=== PATIENT | female | born 1940 | race Caucasian/White ===

== ENCOUNTER → 2016-10-20 | Outpatient (CLI) | payer OTHER, MEDICARE ==
--- NOTE | 2016-10-20 16:37 | MA ---
Screening Digital Mammogram Clinical Indications: Routine screening. Technique: Standard cephalocaudal and mediolateral oblique projections are obtained. This examinati on is processed by the [employer] computer aided detection system. Comparison: August 2015, August 2014, August 2013 and August 2012 Breast density: B; There are scattered fibroglandular densities. Findings: CAD was reviewed. There is subtle new architectural distortion and increasing density in th e outer left breast seen only on the cc view. The remainder of the left and right breast are stable.. Impression: Subtle developing density outer left breast. BI-RADS 0: additional imaging required outer left breast Recommendation: Spot compression view in the CC projection. If persistent, proceed to ultrasound for further characterization and localization purposes.. [facility] will send a result letter to the patient. Negative mammography should not preclude additional workup of a clinically suspicious finding. The patient's information is entered into a reminder system with a target due date for her next mammo gram.
== END ==
LOC: BMCIMAGING 14:31
DX: Z12.31 Encounter for screening mammogram for malignant neoplasm of breast (principal)
CPT/HCPCS: G0202

== ENCOUNTER → 2016-11-07 | Outpatient (CLI) | payer OTHER, MEDICARE ==
--- NOTE | 2016-11-07 13:48 | MA ---
Left diagnostic mammogram Indication: Subtle new distortion and increasing density outer left breast on the CC view. Technique: Spot compressed CC and true lateral views of the left breast. Comparison: Screening mammograms dating back to August 2010 Findings: The distortion completely resolves on the additional views. A benign band of asymmetric tis whit in the outer left breast has a similar appearance to the 2010 and 2009 mammograms. No underlying mass or architectural distortion. A benign lymph node in the deep upper-outer left breast is unchange d. Impression: Benign dense superimposed fibroglandular tissue in the upper-outer left breast. No malign waleska. BI-RADS 2: Benign finding. Recommendation: Resume routine annual screening in October 2017, unless otherwise clinically indicate d. Patient was notified of the negative results and recommendations at time of study completion.
== END ==
LOC: BMCIMAGING 12:32
DX: R92.8 Other abnormal and inconclusive findings on diagnostic imaging of breast (principal); M05.89 Other rheumatoid arthritis with rheumatoid factor of multiple sites; Z51.81 Encounter for therapeutic drug level monitoring
CPT/HCPCS: G0206

== ENCOUNTER → 2017-06-08 | Outpatient (CLI) | payer OTHER, MEDICARE | LOC: BMCIMAGING 11:05 | PROVIDERS: ATTEND Internal Medicine | DX: J44.9 Chronic obstructive pulmonary disease, unspecified (principal); R93.8 Abnormal findings on diagnostic imaging of other specified body structures ==

== ENCOUNTER → 2017-06-11 | Outpatient (CLI) | payer OTHER, MEDICARE | LOC: CIMAGING 13:33 | PROVIDERS: ATTEND Internal Medicine | DX: R91.8 Other nonspecific abnormal finding of lung field (principal); K86.9 Disease of pancreas, unspecified; I71.2 Thoracic aortic aneurysm, without rupture; K57.92 Diverticulitis of intestine, part unspecified, without perforation or abscess without bleeding | CPT/HCPCS: 71250-PO ==

== ENCOUNTER → 2017-06-13 | Outpatient (CLI) | payer OTHER, MEDICARE ==
[~2017-06-13] MED LIST: GADOBUTROL 10 ML VIAL IVP ONE
== END ==
LOC: FIMAGING 08:51
PROVIDERS: ATTEND Internal Medicine
DX: K86.2 Cyst of pancreas (principal)
CPT/HCPCS: 74183; A9585

== ENCOUNTER 2017-06-15 08:05 | Day surgery (SDC) | payer OTHER, MEDICARE ==
[2017-06-15] MEDS ORDERED: LR 1,000 ML IV ONE (08:47)
[2017-06-15] MEDS ORDERED: LIDOCAINE 1% 2 ML INJ ID PRN (08:47)
--- NOTE | 2017-06-15 09:46 | PDANEPAE ---
ANE History of Present Illness 76 yo F w pancreatic mass here for EGD/EUS ANE Past Medical History - Cardiovascular History Hx Hypertension: No Hx Arrhythmias: No Hx Chest Pain: No Hx Coronary Artery / Peripheral Vascular Disease: No Hx CHF / Valvular Disease: No Hx Palpitations: No Cardiovascular History Comment: BULGE IN [place]ORT[place] ON CT 06-11-17 - FU IN 6 MOS - Pulmonary History Hx COPD: Yes Hx Asthma/Reactive Airway Disease: No Hx Recent Upper Respiratory Infection: No Hx Oxygen in Use at Home: No Hx Sleep Apnea: No Sleep Apnea Screening Result - Last Documented: Negative Pulmonary History Comment: DX COPD 5 YRS AGO- WELL MANAGED W/COMBIVENT. PINPOINT SPOTS IN LUNGS PER CT SCAN 06-11-17 - Neurologic History Hx Cerebrovascular Accident: No Hx Seizures: No Hx Dementia: No - Endocrine History Hx Diabetes: No Endocrine History Comment: PANCREAS NODULE ON CT 06-11-17 - Renal History Hx Renal Disorders: Yes Renal History Comment: FREQUENCY - Liver History Hx Hepatic Disorders: No - Neurological & Psychiatric Hx Hx Neurological and Psychiatric Disorders: No - Cancer History Hx Cancer: No - Congenital Disorder History Hx Congenital Disorders: No - GI History Hx Gastrointestinal Disorders: No - Other Health History Other Health History: ORAL LESION. RA ON PREDNISONE AND METHOTREXATE - Chronic Pain History Chronic Pain: No - Surgical History Prior Surgeries: HYSTERECTOMY. LAP JESSE. TORRES'S NEUROMA. BREAST BX ANE Review of Systems Review of Systems: - Exercise capacity METS (RN): 4 METS ANE Patient History - Allergies Allergies/Adverse Reactions: bacitracin [From Neosporin ([id number]-[id number])] Allergy (Verified 06/12/17 15:17) bacitracin zinc [From Neosporin (gjt-wzu-kjezw)] Allergy (Verified 06/12/17 15: 17) neomycin sulfate [From Neosporin (hhp-uvi-qgaiu)] Allergy (Verified 06/12/17 15: 17) Other-Enter Comments NSAIDS (Non-Steroidal Anti-Inflamma Allergy (Verified 06/12/17 15:17) Anaphylaxis polymyxin B [From Neosporin ([id number]-qti-hcrwo)] Allergy (Verified 06/12/17 15:17) - Home Medications Home Medications: Combivent Respimat Inhal [place](*) 06/12/17 [Last Taken 06/15/17 08:55] Methotrexate 06/12/17 [Last Taken 06/09/17] Prednisone 06/12/17 [Last Taken 06/13/17] Z-Sleep 06/12/17 [Last Taken 06/13/17] - NPO status NPO Since - Liquids (Date): 06/14/17 NPO Since - Liquids (Time): 23:00 NPO Since - Solids (Date): 06/14/17 NPO Since - Solids (Time): 19:30 - Anes Hx Anes Hx: no prior problems - Smoking Hx Smoking Status: Heavy smoker (60 pack years) - Alcohol Use Alcohol Use: None - Family Anes Hx Family Anes Hx: none ANE Labs/Vital Signs - Vital Signs Blood Pressure: 170/90 Heart Rate: 78 Respiratory Rate: 20 O2 Sat (%): 96 Height: 172.72 cm Weight: 70.76 kg ANE Physical Exam - Airway Neck exam: FROM Mallampati Score: Class 2 Mouth exam: poor dentition, dentures Mouth image: 1 - missing 2 - missing - Pulmonary Pulmonary: no respiratory distress, expiratory wheeze - Cardiovascular Cardiovascular: regular rate and rhythym - ASA Status ASA Status: III ANE Anesthesia Plan Anesthesia Plan: general endotracheal anesthesia (backup), GA with mask
[2017-06-15] MEDS ORDERED: PROPOFOL/EMULSION 500 MG/50 ML BOTTLE IV ONE (09:57)
[2017-06-15] MEDS ORDERED: levOFLOXACIN 500 MG/DEXTROSE/100 ML BAG IV ONE (10:04)
--- NOTE | 2017-06-15 10:06 | PDGENHP ---
History & Physical Chief Complaint: pancreatic cyst History of Present Illness: 76 year old female presents for evaluation of a pancreatic cyst Pertinent Past, Social, Family History: PMHx: COPD, RA. FaMHx: No pancreatic cancer Relevant Physical Exam: HEENT: Anicteric. CV: RRR +s1s2. Lungs: CTAB No w/r/ r. Abd: soft, nt, + BS Cardiorespiratory Assessment: ASA 3
[2017-06-15] MEDS ORDERED: NS 500 ML IV SCH (10:15)
[2017-06-15] MEDS ORDERED: ACETAMINOPHEN 500 MG TAB PO PRN (10:21)
[2017-06-15] MEDS ORDERED: ONDANSETRON 4 MG/2 ML VIAL IVP PRN (10:21)
[2017-06-15] MEDS ORDERED: NALOXONE HCL 0.4 MG/ML INJ IVP PRN (10:21)
[2017-06-15] MEDS ORDERED: PROPOFOL 200 MG/20 ML VIAL ONE (10:36)
[2017-06-15 10:57] VITALS: PULSE 73
[2017-06-15 11:00] VITALS: TEMP 97.7
--- NOTE | 2017-06-15 11:03 | GIREPORT ---
Formerly [facility] Surgical Services - Endoscopy Department Patient Name: Vashti Angela Procedure Date: 06/15/2017 9:55 AM Patient Type: Outpatient Attending / ER Physician: Logan Maguire MD Procedure: Upper EUS Indications: Pancreatic cyst on MRI Patient Profile: 76 year old female presents for evaluation of pancreatic cyst. Providers: Logan Maguire MD Medicines: Monitored Anesthesia Care Complications: No immediate complications. Estimated blood loss: Minimal. Findings: Endoscopic Finding : The Z-line was irregular and was found at the gastroesophageal junction. Patchy mildly erythematous mucosa was found in the gastric body and in the gastric antrum. Biopsies were taken with a cold forceps for histology. A few diminutive sessile polyps were found on the greater curvature of the stomach. A single large sessile polyp was found in the second portion of the duodenum. The polyp was 2.5cm x 4.0cm. Biopsies were taken with a cold forceps for histology. Endosonographic Finding : An anechoic lesion suggestive of a cyst was identified in the pancreatic head. It does not communicate with the pancreatic duct. The lesion measured 25 mm by 40 mm in maximal cross-sectional diameter. There was a single compartment thinly septated. The outer wall of the lesion was thin. There was internal debris within the fluid-filled cavity. Fine needle aspiration for cytology was performed. Color Doppler imaging was utilized prior to needle puncture to confirm a lack of significant vascular structures within the needle path. One pass was made with the 25 gauge needle using a transduodenal approach. Approc A stylet was used. A gear tooth lapping machine operator was present and performed a preliminary cytologic examination. Final cytology results are pending. Pancreatic parenchymal abnormalities were noted in the entire pancreas. These consisted of hyperechoic foci. A few dilated side branches were noted. The pancreatic duct wall was not hyperechoic. There was no sign of significant endosonographic abnormality in the entire main bile duct. The maximum diameter of the duct was 4 mm. No cysts and no stones were identified. No lymphadenopathy seen. Estimated Blood Loss: Estimated blood loss was minimal. Post Op Diagnosis: - Z-line irregular, at the gastroesophageal junction. - Erythematous mucosa in the gastric body and antrum. Biopsied. - A few gastric polyps. - A single duodenal polyp. Biopsied and NOT removed. Will need endoscopic mucosal resection dependent on biopsy results. - A cystic lesion was seen in the pancreatic head. Fine needle aspiration performed. - Pancreatic parenchymal abnormalities consisting of hyperechoic foci were noted in the entire pancreas. - There was no sign of significant pathology in the entire main bile duct. Recommendation: - Discharge patient to home (with escort). - Await cytology results and await path results. - Perform an upper GI endoscopy in 6 weeks. - Await pathology results. - Clear liquid diet. - Ciprofloxacin 500 mg PO BID x 5 days. - Thamaddy you for allowing me to participate in the care Attending Participation: I personally performed the entire procedure. Logan Maguire MD Logan Maguire MD 06/15/2017 11:02:52 AM Number of Addenda: 0 Note Initiated On: 06/15/2017 9:55 AM Total Procedure Duration Time 0 hours 32 minutes 11 seconds [id number]}
--- NOTE | 2017-06-15 11:04 | POSTOPPROG ---
Post Op Note Date of Operation: 06/15/17 Surgeon: Logan Maguire Pre-op Diagnosis: pancreatic cyst Post-op Diagnosis: pancreatic cyst, gastritis, duodenal cyst. Indication: pancreatic cyst Procedure: EGD with bx, EUS with FNA Findings: + cyst + polyp Inf/Abcess present in the surg proc area at time of surgery?: No EBL: Minimal
[2017-06-15 11:13] VITALS: RESP 19
[2017-06-15 12:33] VITALS: BP 150/76; O2SAT 97
--- NOTE | 2017-06-15 16:47 | POSTANESTH ---
Post Anesthetic Evaluation Cardiovascular Status: Normal, Stable, Similar to Pre-Op Cond Respiratory Status: Normal, Stable, Similar to Pre-op Cond. Level of Consciousness/Mental Status: Can Participate in Eval, Alert and Oriented Pain Control: Adequate, Prn Tx Ordered Nausea/Vomiting Control: Adequate, Prn Tx Ordered Complications Possibly Related to Anesthesia: None Noted
[2017-06-18 10:54] LABS: AMYLASE RESULT 86 U/L
== END 2017-06-15 11:57 | disposition home or self-care (01) ==
LOC: FSGY 08:05
PROVIDERS: ATTEND Internal Medicine Gastroenterology
PROC: 0DB68ZX Excision of Stomach, Via Natural or Artificial Opening Endoscopic, Diagnostic (ICD-10-PCS; principal; 2017-06-15 10:00)
PROC: 0DB38ZX Excision of Lower Esophagus, Via Natural or Artificial Opening Endoscopic, Diagnostic (ICD-10-PCS; principal; 2017-06-15 10:00)
PROC: 0F9G4ZX Drainage of Pancreas, Percutaneous Endoscopic Approach, Diagnostic (ICD-10-PCS; principal; 2017-06-15 10:00)
PROC: 0DB98ZX Excision of Duodenum, Via Natural or Artificial Opening Endoscopic, Diagnostic (ICD-10-PCS; principal; 2017-06-15 10:00)
DX: K86.2 Cyst of pancreas (principal); K86.9 Disease of pancreas, unspecified; K31.7 Polyp of stomach and duodenum; K22.8 Other specified diseases of esophagus; K29.70 Gastritis, unspecified, without bleeding; R93.5 Abnormal findings on diagnostic imaging of other abdominal regions, including retroperitoneum; J44.9 Chronic obstructive pulmonary disease, unspecified; M06.9 Rheumatoid arthritis, unspecified; F17.210 Nicotine dependence, cigarettes, uncomplicated
CPT/HCPCS: J1956; J2704

== ENCOUNTER → 2017-10-24 | Outpatient (CLI) | payer OTHER, MEDICARE | LOC: BMCIMAGING 12:41 | PROVIDERS: ATTEND Internal Medicine | DX: Z12.31 Encounter for screening mammogram for malignant neoplasm of breast (principal) ==

== ENCOUNTER 2017-12-11 09:31 | Observation (INO) | payer OTHER, MEDICARE ==
[2017-12-11] MEDS ORDERED: LR 1,000 ML IV ONE (09:50)
[2017-12-11] MEDS ORDERED: LIDOCAINE 1% 2 ML INJ ID PRN (09:50)
--- NOTE | 2017-12-11 10:42 | PDANEPAE ---
ANE History of Present Illness EGD ANE Past Medical History - Cardiovascular History Hx Hypertension: No Hx Arrhythmias: No Hx Chest Pain: No Hx Coronary Artery / Peripheral Vascular Disease: No Hx CHF / Valvular Disease: No Hx Palpitations: No Cardiovascular History Comment: BULGE IN [place]ORT[place] ON CT 06-11-17 - FU IN 6 MOS - Pulmonary History Hx COPD: Yes Hx Asthma/Reactive Airway Disease: No Hx Recent Upper Respiratory Infection: No Hx Oxygen in Use at Home: No Hx Sleep Apnea: No Pulmonary History Comment: DX COPD 5 YRS AGO- WELL MANAGED W/COMBIVENT. PINPOINT SPOTS IN LUNGS PER CT SCAN 06-11-17 - Neurologic History Hx Cerebrovascular Accident: No Hx Seizures: No Hx Dementia: No - Endocrine History Hx Diabetes: No Endocrine History Comment: PANCREAS NODULE ON CT 06-11-17 - Renal History Hx Renal Disorders: Yes Renal History Comment: FREQUENCY - Liver History Hx Hepatic Disorders: No - Neurological & Psychiatric Hx Hx Neurological and Psychiatric Disorders: No - Cancer History Hx Cancer: No - Congenital Disorder History Hx Congenital Disorders: No - GI History Hx Gastrointestinal Disorders: Yes Gastrointestinal History Comment: small bowel polp - Other Health History Other Health History: ORAL LESION. RA ON PREDNISONE AND METHOTREXATE - Chronic Pain History Chronic Pain: No - Surgical History Prior Surgeries: HYSTERECTOMY. LAP JESSE. TORRES'S NEUROMA. BREAST BX. polp on small bowel removing in parts ANE Review of Systems Review of systems is: negative Review of Systems: - Exercise capacity METS (RN): 4 METS ANE Patient History - Allergies Allergies/Adverse Reactions: bacitracin [From Neosporin ([id number]-lve-ndmyo)] Allergy (Verified 06/12/17 15:17) bacitracin zinc [From Neosporin ([id number]-ebd-zwkxj)] Allergy (Verified 06/12/17 15: 17) neomycin sulfate [From Neosporin (krf-wkd-chjlj)] Allergy (Verified 06/12/17 15: 17) Other-Enter Comments NSAIDS (Non-Steroidal Anti-Inflamma Allergy (Verified 06/12/17 15:17) Anaphylaxis polymyxin B [From Neosporin ([id number]-ysl-blgxn)] Allergy (Verified 06/12/17 15:17) - Home Medications Home medications: home medication list seen and reviewed Home Medications: Combivent Respimat Inhal [place](*) 06/12/17 [Last Taken 12/11/17 08:30] Methotrexate 06/12/17 [Last Taken 12/08/17] Prednisone 06/12/17 [Last Taken 12/10/17] Z-Sleep 06/12/17 [Last Taken 12/10/17] - NPO status NPO Since - Liquids (Date): 12/11/17 NPO Since - Liquids (Time): 09:00 NPO Since - Solids (Date): 12/10/17 NPO Since - Solids (Time): 19:00 - Anes Hx Anes Hx: post operative nausea and vomiting - Smoking Hx Smoking Status: Heavy smoker - Family Anes Hx Family Anes Hx: none ANE Labs/Vital Signs - Labs Result Diagrams: 12/11/17 10:43 12/11/17 10:43 - Vital Signs Height: 172.72 cm Weight: 70.307 kg ANE Physical Exam - Airway Neck exam: FROM Mallampati Score: Class 2 Mouth exam: dentures - Pulmonary Pulmonary: no respiratory distress - Cardiovascular Cardiovascular: regular rate and rhythym - ASA Status ASA Status: III ANE Anesthesia Plan Total IV Anesthesia: Yes
--- NOTE | 2017-12-11 10:50 | PDGENHP ---
History & Physical Chief Complaint: CC: Hematochezia History of Present Illness: 77 year old women with recent EGD with endoscopic removal of duodenal polyp. Patient with hematochezia and light headedness. Patient was instructed to go to ER for evaluation. Patient was sent to Endo directly. Patient was hemodynamically stable in Endo. Patient presents now for EGD and flex sig to evaluate bleeding. Pertinent Past, Social, Family History: HTN Relevant Physical Exam: Lungs Clear Cardiac Normal
--- NOTE | 2017-12-11 10:51 | POSTANESTH ---
Post Anesthetic Evaluation Cardiovascular Status: Normal, Stable, Similar to Pre-Op Cond Respiratory Status: Similar to Pre-op Cond. Level of Consciousness/Mental Status: Can Participate in Eval Pain Control: Adequate, Prn Tx Ordered Nausea/Vomiting Control: Adequate, Prn Tx Ordered Complications Possibly Related to Anesthesia: None Noted
[2017-12-11 10:53] LABS: PLATELET COUNT 183 10^3/uL (150-400)
[2017-12-11] MEDS ORDERED: PROPOFOL/EMULSION 500 MG/50 ML BOTTLE IV ONE (11:16)
[2017-12-11] MEDS ORDERED: LIDOCAINE 2% 100 MG/5 ML SYR ONE (11:16)
--- NOTE | 2017-12-11 11:36 | GIREPORT ---
[facility] Surgical Services - Endoscopy Department Patient Name: Vashti Angela Procedure Date: 12/11/2017 11:09 AM Patient Type: Outpatient Attending MD/ ER Physician: Jose Sosa MD Procedure: Upper GI endoscopy Indications: Acute post hemorrhagic anemia, Hematochezia, Recent EGD with duodenal polypectomy. Providers: Jose Sosa MD Medicines: Sedation Required Anesthesia Staff Assistance Complications: No immediate complications. Description of Procedure: After obtaining informed consent, the endoscope was passed under direct vision. Throughout the procedure, the patient's blood pressure, pulse, and oxygen saturations were monitored continuously. The Endoscope was intro duced through the mouth, and advanced to the second part of duodenum. The [facility] GI endoscopy was accomplished without difficulty. The patient tolerated th e procedure well. Findings: The examined esophagus was normal. A small hiatal hernia was present. The entire examined stomach was normal. No bleed see in the stomach. One non-obstructing non-bleeding cratered duodenal ulcer with pigmented material was found in the second portion of the duodenum. The lesion wa s 20 mm in largest dimension. Estimated Blood Loss: Estimated blood loss: none. Post Op Diagnosis: - Normal esophagus. - Normal stomach. - One non-obstructing non-bleeding duodenal ulcer with pigmented materi al. Stigmata of recent bleeding. - No specimens collected. Recommendation: - Recommend admission to the hosptial for observation in setting of acu te GIB. - Serial H and H - Use Protonix (pantoprazole) 40 mg IV BID. - Clear liquid diet. - Type and Screen - Thank you for allowing me to participate in the care of your patient. Attending Participation: I personally performed the entire procedure. Jose Sosa MD Jose Sosa MD 12/11/2017 11:35:33 AM This report has been signed electronicallyStgoran Sosa MD Number of Addenda: 0 Note Initiated On: 12/11/2017 11:09 AM [email or web address]}
--- NOTE | 2017-12-11 11:39 | GIREPORT ---
Formerly [facility] Surgical Services - Endoscopy Department Patient Name: Vashti Angela Procedure Date: 12/11/2017 11:23 AM Patient Type: Outpatient Attending / ER Physician: Jose Sosa MD Procedure: Flexible Sigmoidoscopy Indications: Hematochezia, Melena Providers: Jose Sosa MD Medicines: Sedation Required Anesthesia Staff Assistance Complications: No immediate complications. Description of Procedure: After obtaining informed consent, the endoscope was passed under direct vision. Throughout the procedure, the patient's blood pressure, pulse, and oxygen saturations were monitored continuously. The Colonoscope was introduced through the anus and advanced to the rectum. The flexible sigmoidoscopy was accomplished without difficulty. The patient tolerate d the procedure well. The quality of the bowel preparation was adequate. Findings: Internal hemorrhoids were found during retroflexion. The hemorrhoids we re medium-sized. Red maroon blood was found in the rectum. Estimated Blood Loss: Estimated blood loss: none. Post Op Diagnosis: - Internal hemorrhoids. - Blood in the rectum. - No specimens collected. Recommendation: - Patient being admitted for observation and managment of an UGI bleed. - Thank you for allowing me to participate in the care of your patient. Attending Participation: I personally performed the entire procedure. Jose Sosa MD Jose Sosa MD 12/11/2017 11:38:58 AM This report has been signed electronicallyStgoran Sosa MD Number of Addenda: 0 Note Initiated On: 12/11/2017 11:23 AM Total Procedure Duration Time 0 hours 0 minutes 53 seconds [email or web address]
[2017-12-11] MEDS ORDERED: HYDROCODONE/APAP 5/325 TAB PO PRN (11:41)
[2017-12-11] MEDS ORDERED: ALBUTEROL 3 ML DEYVIAL IH PRN (11:41)
[2017-12-11] MEDS ORDERED: OXYCODONE/APAP 5/325 TAB PO PRN (11:41)
[2017-12-11] MEDS ORDERED: ACETAMINOPHEN 500 MG TAB PO PRN (11:41)
[2017-12-11] MEDS ORDERED: fentaNYL 100 MCG/2 ML INJ IVP PRN (11:41)
[2017-12-11] MEDS ORDERED: DEXAMETHASONE 4 MG/ML VIAL IVP PRN (11:41)
[2017-12-11] MEDS ORDERED: ONDANSETRON 4 MG/2 ML VIAL IVP PRN ×2 (11:41→12:32)
[2017-12-11] MEDS ORDERED: NALOXONE HCL 0.4 MG/ML INJ IVP PRN (11:41)
[2017-12-11] MEDS ORDERED: ACETAMINOPHEN 325 MG TAB PO PRN (12:32)
[2017-12-11] MEDS ORDERED: PROMETHAZINE HCL 25 MG/ML INJ IVP PRN (12:32)
--- NOTE | 2017-12-11 12:50 | GHP ---
[f rep st] HISTORY AND PHYSICAL DATE OF ADMISSION: 12/11/2017 CHIEF COMPLAINT: Blood in stool. HISTORY OF PRESENT ILLNESS: This is a 77-year-old female, who underwent an EGD with endoscopic remov al of a duodenal polyp last week. Presented to the hospital today after she had an episode of hemato chezia and the feeling of lightheadedness this morning. Last night the patient had some chili, which she felt did not agree with her. She vomited multiple t imes last night. Her vomitus was described as nonbloody and did not have any appearance of coffee-gr ound emesis. This morning, she developed some bright red blood per rectum and felt lightheaded. Melissa arently she was sent directly to the endoscopy suite, where she underwent an EGD and flex sig by Dr. Sosa. The flex sig revealed red maroon stool in the rectum as well as internal hemorrhoids. The EGD showed 1 nonobstructing, nonbleeding duodenal ulcer with pigmented material and stigmata of recen t bleeding. During the time of my exam, the patient was seen in the postoperative area. She is deny ing any abdominal pain. She is no longer feeling nauseous. PAST MEDICAL HISTORY: 1. Tobacco abuse. 2. Chronic obstructive pulmonary disease. PAST SURGICAL HISTORY: Cholecystectomy. HOME MEDICATIONS: Refer to Daily Dealy for details. ALLERGIES: Bacitracin, NSAIDs, neomycin, polymyxin. SOCIAL HISTORY: The patient smokes. She denies any current alcohol use. She denies any illicit carmelina g use. FAMILY HISTORY: Significant for mother with multiple intestinal surgeries, possible colon cancer. REVIEW OF SYSTEMS: Comprehensive 10-point review of systems was done and is negative, except for as mentioned in the HPI. PHYSICAL EXAMINATION: VITAL SIGNS: Blood pressure 133/65, pulse of 74, respiratory rate 21, O2 sat 100% on 2 L, temperature afebrile. GENERAL: No acute distress. HEAD: Normocephalic, atraumatic. EYES: PERRLA. Sclerae anicteric. MOUTH: Moist mucous membranes. NECK: Supple. No lymphadenopat hy. CARDIOVASCULAR: S1-S2. No JVD. No lower extremity edema. PULMONARY: Lungs are clear to ausc ultation bilaterally. No wheezes, rales, or rhonchi. ABDOMEN: Soft, nontender, nondistended. No g uarding or rebound tenderness. Normoactive bowel sounds. EXTREMITIES: No clubbing or cyanosis. NE URO: Cranial nerves 2-12 grossly intact. No focal motor or sensory deficits. SKIN: Without rash. DIAGNOSTICS: WBC is 11.1, hemoglobin 12.8, hematocrit 37.6, down from a crit of 49.3 on 11/27/2017. Sodium 144, potassium 4, chloride 107, BUN 27, creatinine 0.5, glucose 82. ASSESSMENT: This is a 77-year-old female who underwent esophagogastroduodenoscopy and endoscopic rem oval of a duodenal polyp last week, presenting with suspected acute gastrointestinal bleed with acute blood loss anemia. PLAN: Once again, the patient has already undergone EGD and sigmoidoscopy. At this point, she will be observed and closely monitored for further bleeding. We will start Protonix 40 mg IV b.i.d. and c heck a type and cross. We will also obtain baseline coags. If she continues to be hemodynamically s table and not bleeding, she can likely be discharged in the morning. Chemical DVT prophylaxis is contraindicated in the setting of bleeding. We will order SCDs. /[id number]/MODL
--- NOTE | 2017-12-11 13:51 | GCON ---
[f rep st] CONSULTATION DATE OF CONSULTATION: 12/11/2017 CHIEF COMPLAINT: Hematochezia, lightheadedness. HISTORY OF PRESENT ILLNESS: This 77-year-old woman had been directed to the emergency department. S he was sent up to endoscopy directly. She had undergone an upper endoscopy last week with Dr. Maguire. She had a large duodenal polyp that was adenomatous. She had this snare excised with mucosal resect ion. Last evening, she felt unwell, she had some nausea and vomiting. She did not vomit any hematem esis. She denies any bright red blood or coffee-ground material. She felt unwell most of the night. In the morning, she had 2 episodes of bright red blood per rectum. She was feeling somewhat lighthe aded and dizzy. She was directed to go to the emergency department by our office. She presented up to endoscopy. She was not tachycardic in endoscopy, had normal blood pressure. Her hematocrit was s omewhat low at 37% with a mildly elevated BUN and normal creatinine suggesting upper GI bleed. It wa s recommended she go directly to the endoscopy unit. PAST MEDICAL HISTORY: Remarkable for tobacco abuse, COPD. PAST SURGICAL HISTORY: Remarkable cholecystectomy. ALLERGIES: Bactrim, NSAIDs, neomycin, polymyxin. SOCIAL HISTORY: She is a nonsmoker. No significant alcohol or illicit drugs. FAMILY HISTORY: Possible colon cancer in her mother. Otherwise, negative per chief complaint. MEDICATIONS: Patient describes taking prednisone, methotrexate and inhaler as an outpatient. REVIEW OF SYSTEMS: Negative 10 systems other than mentioned HPI. PHYSICAL EXAM: VITAL SIGNS: 129/72, pulse of 75, respiratory rate 21, temperature 36.5 Celsius. GE NERAL: Very pleasant woman in no acute distress. HEENT: Normocephalic, atraumatic. EOMI. NECK: S upple. No cervical adenopathy. LUNGS: Clear. CARDIAC: Normal S1, S2 without murmur. ABDOMEN: So ft, benign nontender, no hepatosplenomegaly. EXTREMITIES: Without clubbing, cyanosis, edema. SKIN: Warm, dry, intact. NEURO: Nonfocal. PSYCH: Normal affect. Oriented to person, place, and time. LABORATORY DATA: White count 11.1, hemoglobin 12.8, hematocrit 37.6. Serum chemistries: Serum sodiu m 144, potassium 4.0, chloride 107, CO2 28, BUN 27, creatinine 0.9. IMPRESSION: A 77-year-old woman who has had a recent large polypectomy in the duodenum now presents with some symptoms of lightheadedness, dizziness and reported passage of blood per rectum. She descr ibed bright red blood per rectum. However, she does have a slight drop in her hematocrit with elevat ed BUN of 27, suggesting a possible upper GI bleed. Given recent polypectomy in the duodenum, would recommend urgent upper endoscopy. We will also proceed with flexible sigmoidoscopy at the time of up per endoscopy. RECOMMENDATIONS: 1. Proceed with urgent upper endoscopy and flexible sigmoidoscopy. 2. Anticipate admission to the hospital for observation. /[id number]/MODL
[2017-12-11 15:18] LABS: INR 1.08 (0.83-1.16); PROTIME(PATIENT) 14.2 SEC (12.0-15.0)
[2017-12-11] MEDS: PANTOPRAZOLE SODIUM 40 MG VIAL IVP SCH (20:00)
[2017-12-11] MEDS ORDERED: diphenhydrAMINE 25 MG CAP PO PRN (21:02)
[2017-12-12] MEDS: PANTOPRAZOLE SODIUM 40 MG VIAL IVP SCH (08:21)
--- NOTE | 2017-12-12 08:44 | SOAPPROG ---
SOAP Progress Note Assessment/Plan: Assessment: Patient has an episode of dark red stool yesterday. Was described as a small amount. Patient without abdominal pain, no light headiness or dizziness. She had a slight drop in Hct since admission. Plan: 1. Advance to regular diet 2. Pantoprazole 40 mg PO BID x 2 weeks then 40 mg a day x 6 weeks 3. Ok for discharge home later today. Will need follow up with Dr. Maguire. 4. I would recommend an outpatient colonoscopy at some point in the near future. 12/12/17 08:41 Subjective: CC: GI Bleed Patient without pain. Had one episode of dark red stool since admission. No abdominal pain, no light headedness. Objective: Vital Signs Temp Pulse Resp BP Pulse Ox 36.7 C 76 18 147/81 H 94 12/12/17 07:18 12/12/17 07:18 12/12/17 07:18 12/12/17 07:18 12/12/17 07:18 Laboratory Results 12/12/17 05:55 12/11/17 10:43 12/11/17 12/12/17 12/13/17 05:59 05:59 05:59 Intake Total 1000 Output Total 0 Balance 1000 PT 14.2 SEC (12.0-15.0) 12/11/17 14:15 INR 1.08 (0.83-1.16) 12/11/17 14:15 Generic Name Dose Route Start Last Admin Trade Name Freq PRN Reason Stop Dose Admin Acetaminophen 650 mg 12/11/17 12:32 Tylenol PO 06/09/18 12:31 Q6 PRN Pain, Mild/Fever, Can Take PO Albuterol/Ipratropium 1 inh 12/12/17 09:00 Combivent Respimat Inhal [place] IH 06/10/18 08:59 BID NOELLE Diphenhydramine HCl 25 mg 12/11/17 21:02 12/12/17 00:08 Benadryl PO 06/09/18 21:01 25 mg HS PRN Administration Sleep/Insomnia Ondansetron HCl 4 mg 12/11/17 12:32 Zofran IVP 06/09/18 12:31 Q4 PRN Nausea/Vomiting, Can't Take PO Pantoprazole Sodium 40 mg 12/11/17 21:00 12/12/17 08:21 Protonix IVP 06/09/18 20:59 40 mg BID NOELLE Administration Promethazine HCl 12.5 mg 12/11/17 12:32 Phenergan IVP 06/09/18 12:31 Q6 PRN Nausea/Vomiting, Can't Take PO Discontinued Medications Generic Name Dose Route Start Last Admin Trade Name Franchesca PRN Reason Stop Dose Admin Acetaminophen 500 mg 12/11/17 11:41 Tylenol PO 12/11/17 12:41 Q6HRS PRN PACU, Pain Mild Hydrocodone Bitart/Acetaminophen 1 - 2 tab 12/11/17 11:41 [place] 5/325 PO 12/11/17 12:41 Q4HRS PRN PACU, Pain Moderate Albuterol 3 ml 12/11/17 11:41 Proventil Neb IH 12/11/17 12:41 Q10M PRN PACU, Wheezing Dexamethasone 4 mg 12/11/17 11:41 Decadron Injection IVP 12/11/17 12:41 ONCE PRN PACU, Nausea/Vomiting Epinephrine HCl Confirm 12/11/17 10:42 Epinephrine Administered 12/11/17 10:43 Dose 1 mg .ROUTE .STK-MED ONE Fentanyl 25 - 100 mcg 12/11/17 11:41 Sublimaze IVP 12/11/17 12:41 Q5M PRN PACU, IMMEDIATE Pain control Lactated Ringer's 1,000 mls @ 0 mls/hr 12/11/17 09:50 12/11/17 10:48 Lr IV 12/11/17 09:51 1,000 mls ONCE ONE Administration KVO Lidocaine HCl 0.2 ml 12/11/17 09:50 12/11/17 10:48 Lidocaine Hcl 1% ID 12/11/17 11:51 0.2 ml ONCE PRN Administration IV Start Lidocaine HCl Confirm 12/11/17 11:16 Lidocaine Hcl 2% Administered 12/11/17 11:17 Dose 100 mg .ROUTE .STK-MED ONE Naloxone HCl 0.1 mg 12/11/17 11:41 Narcan IVP 12/11/17 12:41 Q2M PRN PACU Resp Rate <10/min Ondansetron HCl 2 - 4 mg 12/11/17 11:41 Zofran IVP 12/11/17 12:41 Q10M PRN PACU, Nausea/Vomiting Oxycodone/Acetaminophen 1 - 2 tab 12/11/17 11:41 Percocet 5/325 PO 12/11/17 12:41 Q4HRS PRN PACU, Pain Severe Propofol Confirm 12/11/17 11:16 Diprivan 10 Mg/Ml (Premix) Administered 12/11/17 11:17 Dose 500 mg IV .STK-MED ONE Physical Exam - Physical Exam General Appearance: alert, no apparent distress Respiratory: lungs clear, normal breath sounds Cardiac/Chest: regular rate, rhythm Abdomen: normal bowel sounds, non-tender, soft Skin: normal color, warm/dry Neuro/Psych: no motor/sensory deficits, alert, normal mood/affect, oriented x 3 ICD10 Worksheet Patient Problems: Problems Problem Status Onset Melena Acute - ICD10 Problem Qualifiers (1) Melena
--- NOTE | 2017-12-12 08:47 | HOSPPROG ---
Hospitalist Progress Note Assessment/Plan: patient is a 77 y/o admitted due to concerns of blood in her stool. Reviewed her care w Dr Sosa. *GI bleed -h/h overall stable, have trended down a bit -PPI bid x 2 weeks, then daily x 6 weeks -OP colonoscopy *nicotine dependence -cessation recommended, patch *COPD *plan; dc home, further f/u with Dr Maguire Subjective: Vashti is feeling well, no complaints. Objective: Vital Signs Temp Pulse Resp BP Pulse Ox 36.7 C 76 18 147/81 H 94 12/12/17 07:18 12/12/17 07:18 12/12/17 07:18 12/12/17 07:18 12/12/17 07:18 Laboratory Results 12/12/17 05:55 12/11/17 10:43 12/11/17 12/12/17 12/13/17 05:59 05:59 05:59 Intake Total 1000 Output Total 0 Balance 1000 PT 14.2 SEC (12.0-15.0) 12/11/17 14:15 INR 1.08 (0.83-1.16) 12/11/17 14:15 - Physical Exam Constitutional: no apparent distress, appears nourished, not in pain Eyes: PERRL Ears, Nose, Mouth, Throat: hearing normal Cardiovascular: regular rate and rhythym Respiratory: no respiratory distress Gastrointestinal: normoactive bowel sounds Skin: warm Musculoskeletal: full muscle strength Neurologic: AAOx3 Psychiatric: interacting appropriately ICD10 Worksheet Patient Problems: Problems Problem Status Onset Melena Acute
[2017-12-12] MEDS ORDERED: IPRATROPIUM/ALBUTEROL 4GM MDI IH SCH (09:00)
[2017-12-12] MEDS ORDERED: PANTOPRAZOLE SODIUM 40 MG TAB PO SCH (09:00)
--- NOTE | 2017-12-12 10:06 | ASMTCMCOM ---
CM Note CM Note Notes: Spoke w/RN, anticipate will dc home independent when medically stable. CM available for any changes. DC Plan: Independent Date Signed: 12/12/2017 10:06 AM Electronically Signed By:Riana Ozuna RN
--- NOTE | 2017-12-12 10:14 | GDS ---
[f rep st] DISCHARGE SUMMARY DISCHARGE DIAGNOSES: 1. Likely upper gastrointestinal bleed. 2. Anemia due to this. 3. Nicotine dependence. 4. Chronic obstructive pulmonary disease. HISTORY: Briefly, the patient is a 77-year-old female, who underwent EGD with endoscopic removal of a duodenal polyp last week. She presented to the hospital after she had an episode of hematochezia and the feeling of lightheadedness in the morning. She underwent an EGD and flex sig by Dr. Jarvis. The flex sig revealed maroon stool in the rectum, as well as internal hemorrhoids. The EGD showed a nonobstructing, nonbleeding duodenal ulcer. She was monitored overnight. Her hemoglobin and hematocrit trended down, but have been stable. The plan is for her to be on a PPI daily for 2 weeks, and then daily x6 weeks, and further follow up with Dr. Maguire in the outpatient setting. HOSPITAL COURSE BY PROBLEM: 1. Upper GI bleed. She will stay here through the morning to make sure she is feeling okay. Vital signs are stable. Hemoglobin and hematocrit have trended down, but are not worsen. Will recommend that she see her primary care provider and get a hemoglobin and hematocrit next week. She will be on a PPI b.i.d. x2 weeks, then daily x6 weeks. She needs an outpatient colonoscopy. I discussed this with her. 2. Nicotine dependence. Cessation recommended. She has a patch on. 3. COPD, not on oxygen. Overall stable. DISCHARGE CONDITION: Stable. Blood pressure is 147/81, heart rate is 76, respiratory rate is 18, O2 sats on room air 94%, temperature 36.7 Celsius. MEDICATIONS AT DISCHARGE: Please see the EMR. DISCHARGE INSTRUCTIONS: 1. Recommending she talk to Dr. Maguire in regard about restarting her prednisone and her methotrexate. 2. If she develops any further bleeding, to return to the ER. Copy requested to: Dr. Maguire /[id number]/MODL MTDD
[2017-12-12 11:52] VITALS: BP 144/63; PULSE 82; RESP 14; TEMP 98; O2SAT 100
== END 2017-12-12 11:54 | disposition home or self-care (01) ==
LOC: FSGY 09:31 → F3N 11:49 → F3E 13:23
PROVIDERS: ADMIT Family Medicine; ATTEND Hospitalist
DX: K92.1 Melena (principal); D62 Acute posthemorrhagic anemia; R42 Dizziness and giddiness; K64.8 Other hemorrhoids; K26.9 Duodenal ulcer, unspecified as acute or chronic, without hemorrhage or perforation; K44.9 Diaphragmatic hernia without obstruction or gangrene; F17.210 Nicotine dependence, cigarettes, uncomplicated; J44.9 Chronic obstructive pulmonary disease, unspecified; Z98.890 Other specified postprocedural states
CPT/HCPCS: 43235; 45330; G0378; G0379; J2001; J2704; J0171

== ENCOUNTER → 2017-12-26 | Outpatient (CLI) | payer OTHER, MEDICARE ==
[~2017-12-26] MED LIST changes: -GADOBUTROL 10 ML VIAL IVP ONE; +IOPAMIDOL (ISOVUE 370) 100 ML BTL IV ONE
== END ==
LOC: FIMAGING 11:32
PROVIDERS: ATTEND Internal Medicine
DX: R91.8 Other nonspecific abnormal finding of lung field (principal); I71.2 Thoracic aortic aneurysm, without rupture; J43.9 Emphysema, unspecified; D18.09 Hemangioma of other sites
CPT/HCPCS: 71275; Q9967

== ENCOUNTER → 2018-01-10 | Outpatient (CLI) | payer OTHER, MEDICARE ==
[~2018-01-10] MED LIST changes: -IOPAMIDOL (ISOVUE 370) 100 ML BTL IV ONE; +IOPAMIDOL (ISOVUE-300) 100 ML BTL ONE
== END ==
LOC: FIMAGING 10:12
PROVIDERS: ATTEND Internal Medicine Gastroenterology
DX: K86.2 Cyst of pancreas (principal); I71.4 Abdominal aortic aneurysm, without rupture
CPT/HCPCS: 74160; Q9967

== ENCOUNTER 2018-04-12 20:15 | Inpatient (IN) | payer OTHER, MEDICARE ==
[2018-04-12] MEDS ORDERED: NS 1,000 ML IV ONE ×2 (20:49)
--- NOTE | 2018-04-12 20:57 | EDPHY ---
H & P Stated Complaint: Diarrhea x4 days. Time Seen by Provider: 04/12/18 20:39 HPI/ROS: CHIEF COMPLAINT: Diarrhea HISTORY OF PRESENT ILLNESS: The patient is a 77-year-old immunocompromised female who comes to the emergency department complaining of diarrhea for 4 days. She has history of rheumatoid arthritis and is on methotrexate and prednisone. She has been on 3 different antibiotics in the last 2 months for a chronic wound on her right leg. She cannot remember the name of the 1st but then has been on Levaquin and then clindamycin. She finished 2 weeks ago. About 4 days ago she began having loose stools. Nonbloody. She does not describe them as watery. She states that any time she drinks water however it makes her have diarrhea. She is getting dehydrated. She has not had a fever. No vomiting. No abdominal pain. No distension. REVIEW OF SYSTEMS: Constitutional: denies: chills, fever, recent illness, recent injury EENTM: denies: blurred vision, double vision, nose congestion Respiratory: denies: cough, shortness of breath Cardiac: denies: chest pain, irregular heart rate, lightheadedness, palpitations Gastrointestinal/Abdominal: See HPI Genitourinary: denies: dysuria, frequency, hematuria, pain Musculoskeletal: denies: joint pain, muscle pain Skin: denies: lesions, rash, jaundice, bruising Neurological: denies: headache, numbness, paresthesia, tingling, dizziness, weakness Hematologic/Lymphatic: denies: blood clots, easy bleeding, easy bruising Immunologic/allergic: denies: HIV/AIDS, transplant EXAM: GENERAL: Moderate distress. HEAD: Atraumatic, normocephalic. EYES: Pupils equal round and reactive to light, extraocular movements intact, sclera anicteric, conjunctiva are normal. ENT: TMs normal, nares patent, oropharynx clear without exudates. Dry mucous membranes. NECK: Normal range of motion, supple without lymphadenopathy or JVD. LUNGS: Breath sounds clear to auscultation bilaterally and equal. No wheezes rales or rhonchi. HEART: Not tachycardic, Regular rate and rhythm without murmurs, rubs or gallops. ABDOMEN: Soft, nontender, normoactive bowel sounds. No guarding, no rebound. No masses appreciated. BACK: No CVA tenderness, no spinal tenderness, step-offs or deformities EXTREMITIES: Normal range of motion, no pitting or edema. No clubbing or cyanosis. NEUROLOGICAL: Cranial nerves II through XII grossly intact. Normal speech, normal gait. 5/5 strength, normal movement in all extremities, normal sensation PSYCH: Normal mood, normal affect. SKIN: Warm, dry, normal turgor, no visible rashes or lesions. Source: Patient Exam Limitations: No limitations - Personal History Current Tetanus/Diphtheria Vaccine: No Current Tetanus Diphtheria and Acellular Pertussis (TDAP): No - Medical/Surgical History Hx Asthma: Yes Hx Chronic Respiratory Disease: Yes Hx Diabetes: No Hx Cardiac Disease: No Hx Renal Disease: No Hx Cirrhosis: No Hx Alcoholism: No Hx HIV/AIDS: No Hx Splenectomy or Spleen Trauma: No Other PMH: hysterectomy, gall blader removed, arthitis, tumor removed on toes, angioplasy, COPD. - Family History Significant Family History: No pertinent family hx - Social History Smoking Status: Heavy smoker Alcohol Use: Sober Drug Use: None Constitutional: Initial Vital Signs Temperature (C) 36.6 C 04/12/18 20:28 Heart Rate 94 04/12/18 20:28 Respiratory Rate 16 04/12/18 20:28 Blood Pressure 115/62 04/12/18 20:28 O2 Sat (%) 95 04/12/18 20:28 O2 Delivery Mode Room Air Allergies/Adverse Reactions: bacitracin [From Neosporin ([id number])] Allergy (Verified 04/13/18 09:26) bacitracin zinc [From Neosporin ([id number])] Allergy (Verified 04/13/18 09: 26) neomycin sulfate [From Neosporin ([id number])] Allergy (Verified 04/13/18 09: 26) Other-Enter Comments NSAIDS (Non-Steroidal Anti-Inflamma Allergy (Verified 04/13/18 09:26) Anaphylaxis polymyxin B [From Neosporin ([id number]-[id number])] Allergy (Verified 04/13/18 09:26) Home Medications: Medication Instructions Recorded Ipratropium/Albuterol [Combivent 1 inh IH QID #0 06/12/17 Respimat Inhal [place](*)] predniSONE 5 mg PO DAILY #0 06/12/17 Methotrexate Sodium [Rheumatrex] 17.5 mg PO SA 04/12/18 Zolpidem Tartrate [Ambien 5MG (*)] 2.5 mg PO HS 04/13/18 Medical Decision Making - Diagnostics EKG Interpretation: An EKG obtained and was read and documented in trace view. Please see trace view for full reading and report. Nonspecific T-wave abnormalities no previous for comparison ED Course/Re-evaluation: Patient is at high risk for C diff colitis. She is clinically dehydrated. She will likely require admission. Patient is improving to some degree but has had normal electrolytes. Her potassium is slightly low. EKG shows some nonspecific T-wave abnormalities. Will treat with oral potassium. Paramedics are here to take her for admission. Differential Diagnosis: C difficile, dehydration, electrolyte abnormality, obstruction, ischemia - Data Points Microbiology Results: MICROBIOLOGY 04/12/18 21:33 Stool Gastrointestinal Tract Panel (PCR) - Final Clostridium Difficile Detected Medications Given: Albuterol/Ipratropium (Combivent Respimat Inhal [place]) 1 inh IH QID [facility] Stop: 10/10/18 11:59 Last Admin: 04/13/18 11:25 Dose: 1 puffs Enoxaparin Sodium (Lovenox) 40 mg SC DAILY NOELLE Stop: 10/10/18 08:59 Last Admin: 04/13/18 07:57 Dose: 40 mg Potassium Chloride 40 meq/ (Sodium Chloride) 1,000 mls @ 100 mls/hr IV CONT NOELLE Stop: 10/10/18 00:29 Last Admin: 04/13/18 11:46 Dose: 1,000 mls Prednisone (Prednisone) 2.5 mg PO DAILY NOELLE Stop: 10/10/18 08:59 Last Admin: 04/13/18 09:18 Dose: 2.5 mg Vancomycin HCl (Vancocin Oral Liquid) 125 mg PO QID NOELLE PRN Reason: Protocol Stop: 05/13/18 08:35 Last Admin: 04/13/18 11:44 Dose: 125 mg Discontinued Medications Sodium Chloride (Ns) 1,000 mls @ 0 mls/hr IV EDNOW ONE; Wide Open PRN Reason: Protocol Stop: 04/12/18 20:50 Last Admin: 04/12/18 21:20 Dose: 1,000 mls Sodium Chloride (Ns) 1,000 mls @ 0 mls/hr IV EDNOW ONE; Wide Open PRN Reason: Protocol Stop: 04/12/18 20:50 Last Admin: 04/12/18 21:20 Dose: 1,000 mls Potassium Chloride (Potassium Chloride Oral Liquid) 20 meq PO EDNOW ONE Stop: 04/12/18 22:37 Last Admin: 04/12/18 22:40 Dose: Not Given Potassium Chloride (Klor-Con) 20 meq PO EDNOW ONE Stop: 04/12/18 22:39 Last Admin: 04/12/18 22:43 Dose: 20 meq Point of Care Test Results: CBC CBC Collection Date 04/12/18 CBC Collection Time 21:15 WBC 19.9 RBC 5.55 HGB 17.1 HCT 50.8 PLT 189 Neut # 17.8 Neut 89.3 LYMPH # 1.3 LYMPH 6.5 Other WBC # 0.8 Other WBC 4.2 MCV 91.5 Chemistry 04/12/18 21:20 POC Sodium 138 mEq/L mEq/L (135-145) POC Potassium 2.9 mEq/L L mEq/L (3.3-5.0) POC Chloride 100.0 mEq/L mEq/L (97-110) POC Total CO2 18 mEq/L L mEq/L (22-31) POC BUN 29 mg/dL H mg/dL (7-23) POC Creatinine 3.1 mg/dL H mg/dL (0.6-1.0) POC Glucose 109 mg/dL H mg/dL (70-100) POC Calcium 9.1 mg/dL mg/dL (8.5-10.4) POC Total Bilirubin 1.1 mg/dL mg/dL (0.1-1.4) POC AST 24 IU/L IU/L (14-46) POC ALT 19 IU/L IU/L (9-52) POC Alk Phosphatase 73 IU/L IU/L (38-126) POC Total Protein 6.6 g/dL g/dL (6.3-8.2) POC Albumin 3.9 g/dL g/dL (3.5-5.0) Departure - Departure Disposition: [facility] Acute Clinical Impression: Hypokalemia, Renal insufficiency Diarrhea Qualifiers: Diarrhea type: infectious Qualified Code(s): A09 - Infectious gastroenteritis and colitis, unspecified Condition: Fair
--- NOTE | 2018-04-12 22:07 | CPEKG ---
Heart Rate: 86 RR Interval: 698 P-R Interval: 142 QRSD Interval: 96 QT Interval: 372 QTC Interval: 445 P Brimson: 0 QRS Brimson: 47 T Wave Brimson: 207 EKG Severity - ABNORMAL ECG - EKG Impression: SINUS RHYTHM EKG Impression: Were nonspecific T-wave abnormalities Electronically Signed By: Jeb Handley 12-Apr-2018 22:14:37
[2018-04-12] MEDS ORDERED: POTASSIUM CL 20 MEQ/15 ML UDCUP PO ONE (22:36)
[2018-04-12] MEDS ORDERED: POTASSIUM CL 20 MEQ TAB PO ONE (22:38)
[2018-04-13] MEDS ORDERED: ACETAMINOPHEN 325 MG TAB PO PRN (00:10)
[2018-04-13] MEDS ORDERED: ONDANSETRON 4 MG/2 ML VIAL IVP PRN (00:10)
[2018-04-13] MEDS ORDERED: ONDANSETRON DISINTEGRATING 4 MG TAB PO PRN (00:10)
--- NOTE | 2018-04-13 01:25 | PDGENHP ---
History and Physical - Chief Complaint Diarrhea - History of Present Illness 77 yo F w/ hx of RA and COPD presents with diarrhea. Patient has had 10-15 daily , loose BMs for about 4 days. She denies fevers, abdominal pain, or cramping. Of note, she has undergone 3 different antibiotic courses for RLE wound. She recalls taking levofloxacin and clindamycin, does not recall the third. Her last antibiotic dose was about 2 weeks ago. She denies any prior history of infectious diarrhea, including C. Diff. Work-up in the [facility] was notable for DIMITRIS and hypokalemia. At the time of my evaluation is feeling better after IVF and has not had a BM in several hours. Case discussed with Dr. Lynn; previous records reviewed. History Information - Allergies/Home Medication List Allergies/Adverse Reactions: bacitracin [From Neosporin ([id number])] Allergy (Verified 06/12/17 15:17) bacitracin zinc [From Neosporin ([id number]-bcy-[id number])] Allergy (Verified 06/12/17 15: 17) neomycin sulfate [From Neosporin ([id number]-uxx-[id number])] Allergy (Verified 06/12/17 15: 17) Other-Enter Comments NSAIDS (Non-Steroidal Anti-Inflamma Allergy (Verified 06/12/17 15:17) Anaphylaxis polymyxin B [From Neosporin ([id number])] Allergy (Verified 06/12/17 15:17) Home Medications: Ipratropium/Albuterol [Combivent Respimat Inhal [place](*)] 1 inh IH BID #0 [Last Taken 12/11/17 08:30] Methotrexate Sodium [Rheumatrex] 17.5 mg PO SA@0700 #0 06/12/17 [Last Taken 07/18] predniSONE 5 mg PO DAILY #0 06/12/17 [Last Taken 12/10/17] Methotrexate 04/12/18 [Last Taken Unknown] I have personally reviewed and updated: family history, medical history - Past Medical History COPD Additional medical history: RA - Surgical History Reports: cholecystectomy, hysterectomy - Family History Positive for: CAD - Social History Smoking Status: Heavy smoker Alcohol Use: Sober Drug Use: None Review of Systems Review of Systems: ROS: 10pt was reviewed & negative except for what was stated in HPI & below Physical Exam Physical Exam: Temp Pulse Resp BP Pulse Ox 36.8 C 74 16 116/69 97 04/12/18 23:41 04/12/18 23:41 04/12/18 23:41 04/12/18 23:41 04/12/18 23:41 Constitutional: no apparent distress, not in pain Eyes: PERRL, EOMI Ears, Nose, Mouth, Throat: moist mucous membranes, no oral mucosal ulcers Cardiovascular: regular rate and rhythym, no murmur, rub, or gallop Respiratory: no respiratory distress, clear to auscultation Gastrointestinal: normoactive bowel sounds, soft, non-tender abdomen Skin: warm, normal color Musculoskeletal: full muscle strength, no muscle tenderness Neurologic: AAOx3, CN II-XII Intact Psychiatric: interacting appropriately, not anxious Lab Data & Imaging Review POC Sodium 138 mEq/L (135-145) 04/12/18 21:20 POC Potassium 2.9 mEq/L (3.3-5.0) L 04/12/18 21:20 POC Chloride 100.0 mEq/L (97-110) 04/12/18 21:20 POC Total CO2 18 mEq/L (22-31) L 04/12/18 21:20 POC BUN 29 mg/dL (7-23) H 04/12/18 21:20 POC Creatinine 3.1 mg/dL (0.6-1.0) H 04/12/18 21:20 POC Glucose 109 mg/dL (70-100) H 04/12/18 21:20 POC Calcium 9.1 mg/dL (8.5-10.4) 04/12/18 21:20 POC Total Bilirubin 1.1 mg/dL (0.1-1.4) 04/12/18 21:20 POC AST 24 IU/L (14-46) 04/12/18 21:20 POC ALT 19 IU/L (9-52) 04/12/18 21:20 POC Alk Phosphatase 73 IU/L (38-126) 04/12/18 21:20 POC Total Protein 6.6 g/dL (6.3-8.2) 04/12/18 21:20 POC Albumin 3.9 g/dL (3.5-5.0) 04/12/18 21:20 Visualized and Interpreted EKG results: Yes EKG Interpretation: Positive for: normal sinsus rhythm, NS ST wave abnormalities Assessment & Plan Assessment: 77 yo F w/ RA and COPD presents with likely infectious diarrhea after various courses of antibiotics. Plan: 1. Diarrhea - Suspicious for C. Diff noting various courses of recent antibiotics, including clindamycin. - GI PCR pending - IVF 2. DIMITRIS - Cr 3.1 on admission increased from normal baseline. This is likely pre- renal azotemia from severe diarrhea, other possibility would be AIN from various recent antibiotics. - Will check UA, FeNa - S/p 2 L IVF, will continue mIVF overnight and repeat BMP in the morning - Avoid nephrotoxic agents, renally dose medications 3. COPD - No e/o acute exacerbation, continue home medications. 4. RA - On methotrexate and prednisone as an outpatient, needs med reconciliation. Diet - Regular Code - Full Ppx - LMWH Dispo - Admit under inpatient status noting severity of diarrhea and renal dysfunction.
[2018-04-13] MEDS: POTASSIUM Cl (KCl) 40 MEQ in NS 1,000 ML IV SCH ×3 (01:53→20:08)
[2018-04-13 06:04] LABS: PLATELET COUNT 164 10^3/uL (150-400)
[2018-04-13] MEDS: ENOXAPARIN 40 MG/0.4 ML SYR SC SCH (07:57)
--- NOTE | 2018-04-13 08:04 | PDMN ---
Medical Necessity Medical necessity: est los>2mn for diarrhea, suspicious for c diff, DIMITRIS r/t severe diarrhea vs AIN w/recent multiple abx use; admit for IVF, follow labs, avoid nephrotoxic agents; comorbid COPD, RA on methotrexate and prednisone, recent RLE wound; per order and H&P 04/12/18
[2018-04-13] MEDS ORDERED: predniSONE 5 MG TAB PO SCH (09:00)
[2018-04-13] MEDS: VANCOMYCIN 125 MG/2.5 ML UDL PO SCH ×4 (09:17→20:08)
[2018-04-13] MEDS: predniSONE 5 MG TAB PO SCH (09:18)
[2018-04-13] MEDS: IPRATROPIUM/ALBUTEROL 4GM MDI IH SCH ×3 (11:25→20:13)
--- NOTE | 2018-04-13 13:30 | ASMTCMCOM ---
CM Note CM Note Notes: Pt admitted to hospital for diarrhea, pt positive for cdiff. Pt lives indepedently and ambulates by herself, no therapies ordered. Anticipate she will dc independent when medically stable. CM available for any changes. DC Plan: Indepedent Date Signed: 04/13/2018 01:30 PM Electronically Signed By:Riana Ozuna RN
[2018-04-13] MEDS ORDERED: PROTOCOL POTASSIUM 1 DOSE MISC PRN (13:55)
--- NOTE | 2018-04-13 15:09 | HOSPPROG ---
Hospitalist Progress Note Assessment/Plan: C diff diarrhea - start po vanc DIMITRIS - Cr 3.1 --> 1.6 after IVF's, suspect pre-renal state 2/2 severe diarrhea - cont to trend - avoid nephrotoxic agents, renally dose medications COPD - No e/o acute exacerbation, continue home medications. RA - hold MTX, cont 1/2 dose prednisone for now during acute illness. Resume outpt Pred dose of 5 mg daily at d/c. Diet - Regular Code - Full Ppx - LMWH Dispo - cont inpt Subjective: Pt feels a little better this afternoon. Diarrhea may be slowing down a little, still frequent stools. No fevers/chills. No abdominal pain. Objective: Vital Signs Temp Pulse Resp BP Pulse Ox 36.5 C 69 14 109/56 L 96 04/13/18 11:20 04/13/18 11:26 04/13/18 11:26 04/13/18 11:20 04/13/18 11:26 Laboratory Results 04/13/18 05:10 04/13/18 05:10 04/12/18 04/13/18 04/14/18 05:59 05:59 05:59 Intake Total 410 Balance 410 - Physical Exam Constitutional: no apparent distress Eyes: PERRL Ears, Nose, Mouth, Throat: moist mucous membranes Cardiovascular: regular rate and rhythym Respiratory: no respiratory distress, clear to auscultation Gastrointestinal: normoactive bowel sounds, soft, non-tender abdomen Skin: warm Musculoskeletal: full muscle strength Neurologic: AAOx3 Psychiatric: interacting appropriately ICD10 Worksheet Patient Problems: Problems Problem Status Onset Diarrhea Acute Hypokalemia Acute Renal insufficiency Acute Melena Acute
[2018-04-13] MEDS ORDERED: diphenhydrAMINE 25 MG CAP PO ONE (17:00)
[2018-04-13] MEDS ORDERED: POTASSIUM CL 10 MEQ TAB PO ONE (19:25)
[2018-04-13] MEDS ORDERED: ZOLPIDEM TARTRATE 5 MG TAB PO SCH (21:00)
[2018-04-14 05:08] LABS: PLATELET COUNT 151 10^3/uL (150-400)
[2018-04-14] MEDS: VANCOMYCIN 125 MG/2.5 ML UDL PO SCH ×2 (05:15→12:15)
[2018-04-14] MEDS: IPRATROPIUM/ALBUTEROL 4GM MDI IH SCH ×2 (05:15→12:08)
[2018-04-14] MEDS ORDERED: diphenhydrAMINE 25 MG CAP PO ONE (06:00)
[2018-04-14] MEDS: predniSONE 5 MG TAB PO SCH (08:16)
[2018-04-14] MEDS: POTASSIUM Cl (KCl) 40 MEQ in NS 1,000 ML IV SCH (08:19)
[2018-04-14] MEDS: ENOXAPARIN 40 MG/0.4 ML SYR SC SCH (08:21)
[2018-04-14 12:03] VITALS: BP 159/78
--- NOTE | 2018-04-14 15:57 | GDS ---
[f rep st] DISCHARGE SUMMARY DISCHARGE DIAGNOSES: 1. Clostridium difficile diarrhea. 2. Acute kidney injury, resolved. 3. Chronic obstructive pulmonary disease, stable. 4. Rheumatoid arthritis. 5. Chronic immunosuppression with methotrexate and chronic prednisone. HISTORY: For details, please see history and physical dated April 13, 2018. In brief, the patient is a 77-year-old female with history of rheumatoid arthritis on chronic immunosuppressive therapy, as w ell as COPD, who presented to the emergency room with diarrhea. There was immediately suspicion for C diff diarrhea and she was admitted to the hospital for further management. HOSPITAL COURSE: The patient was admitted to the med/surg unit. A GI pathogen panel indeed was posi tive for C diff. She did recently take 2 courses of antibiotics for right lower extremity wound, inc luding Levaquin and clindamycin. She was started on oral vancomycin. Upon arrival, her creatinine w as 3.1. This was thought likely to be a prerenal injury due to volume depletion in the setting of se jeannette diarrhea. She was aggressively volume repleted with IV fluids and her creatinine normalized to 0.6 on the day of discharge. There was no evidence of acute exacerbation of her COPD. Her methotrex ate was held given her acute infection and she was given half dose of her daily prednisone. She will continue her usual 5 mg of prednisone at discharge. In addition, she is advised that it is importan t to complete entire 2-week treatment course of oral vancomycin to prevent recurrence. DISPOSITION: Patient is discharged home in stable condition. FOLLOWUP: Dr. Louie Lam, primary care. DISCHARGE MEDICATIONS: Please see [facility] for completed outpatient medication list. New medication s on discharge include vancomycin 125 mg p.o. q.i.d. 130 mL. No refills. She will continue all othe r outpatient medications as previously prescribed. /[id number]/MODL
== END 2018-04-14 13:19 | disposition home or self-care (01) | DRG 372 ==
LOC: CED 20:15 → CEDHOLD 20:57 → OBSVTOIN 22:41 → F3E 23:34
PROVIDERS: ADMIT Student in an Organized Health Care Education/Training Program; ATTEND Hospitalist
DX: A04.72 Enterocolitis due to Clostridium difficile, not specified as recurrent (principal); N17.9 Acute kidney failure, unspecified; J44.9 Chronic obstructive pulmonary disease, unspecified; E87.6 Hypokalemia; M06.9 Rheumatoid arthritis, unspecified; Z79.52 Long term (current) use of systemic steroids; Z72.0 Tobacco use
CPT/HCPCS: 80053-PO; J1650; J3480; J7512

== ENCOUNTER → 2018-07-12 | Outpatient (CLI) | payer OTHER, MEDICARE | LOC: FIMAGING 12:54 | PROVIDERS: ATTEND Internal Medicine Gastroenterology | DX: K86.2 Cyst of pancreas (principal); K57.30 Diverticulosis of large intestine without perforation or abscess without bleeding; I77.819 Aortic ectasia, unspecified site | CPT/HCPCS: 74160; Q9967; 82565-PO ==

== ENCOUNTER → 2018-09-05 | Outpatient (CLI) | payer OTHER, MEDICARE | LOC: FIMAGING 09:52 | PROVIDERS: ATTEND Otolaryngology | DX: K13.70 Unspecified lesions of oral mucosa (principal) | CPT/HCPCS: 70487; Q9967; 82565-PO ==

== ENCOUNTER → 2018-11-26 | Outpatient (CLI) | payer OTHER, MEDICARE | LOC: BMCIMAGING 12:55 | PROVIDERS: ATTEND Internal Medicine | DX: Z12.31 Encounter for screening mammogram for malignant neoplasm of breast (principal) ==

== ENCOUNTER → 2019-01-08 | Outpatient (CLI) | payer OTHER, MEDICARE ==
[~2019-01-08] MED LIST changes: +GADOBUTROL 10 ML VIAL IVP ONE; -IOPAMIDOL (ISOVUE-300) 100 ML BTL ONE
== END ==
LOC: FIMAGING 07:15
PROVIDERS: ATTEND Internal Medicine Gastroenterology
DX: K86.2 Cyst of pancreas (principal); K76.89 Other specified diseases of liver
CPT/HCPCS: 74183; A9585